=== PATIENT | female | born 1950 | race Caucasian/White ===

== ENCOUNTER → 2020-10-17 15:11 | Outpatient (BNVA) | payer MEDICARE, SELFPAY | PROVIDERS: Visit Provider Internal Medicine Cardiovascular Disease | DX: I48.0 Paroxysmal atrial fibrillation (principal); E78.5 Hyperlipidemia, unspecified | CPT/HCPCS: 93005; 99212 ==

== ENCOUNTER 2020-12-28 08:40 | Outpatient (REF) | payer MEDICARE, SELFPAY ==
[2020-12-28 09:14] LABS: Hematocrit 44.2 % (37-47); Hemoglobin 14.5 g/dl (12.0-16.0); Mean Corpuscular HGB Conc 32.8 g/dl (31.0-35.0); Mean Corpuscular Hemoglobin 30.1 pg (27.0-33.0); Mean Corpuscular Volume 91.9 fL (80-98); Mean Platelet Volume 8.8 fL (9.4-12.3); Platelet Count 351 X10*3/uL (160-400); Red Blood Count 4.81 X10*6/uL (4.20-5.50); Red Cell Distribution Width 12.6 % (11.0-16.0); White Blood Count 6.5 X10*3/uL (4.8-10.8)
[2020-12-28 09:35] LABS: Anion Gap 12 (12-20); Blood Urea Nitrogen 11 mg/dL (9-16); Calcium 9.4 mg/dL (8.4-10.2); Carbon Dioxide 26 mmol/L (22-29); Chloride 105 mmol/L (96-108); Cholesterol 257 mg/dL; Estimated Glomerular Filt Rate > 60; Glucose Random 101 mg/dL (60-115); HDL Cholesterol 60 mg/dL; LDL Cholesterol Calculated 167 mg/dl; Potassium 4.2 mmol/L (3.3-5.1); Sodium 139 mmol/L (135-145); Triglycerides 153 mg/dL
[2020-12-28 10:00] LABS: TSH reflex Free T4 0.06 uIU/mL (0.32-4.0)
== END 2020-12-28 08:41 | disposition home or self-care (01) ==
LOC: HO.LAB 08:40
PROVIDERS: Visit Provider Internal Medicine Cardiovascular Disease
DX: I48.0 Paroxysmal atrial fibrillation (principal); I25.10 Atherosclerotic heart disease of native coronary artery without angina pectoris
CPT/HCPCS: 36415; 80048; 80061; 84439; 84443; 85027

== ENCOUNTER → 2022-02-23 14:45 | Outpatient (BNVA) | payer MEDICARE, SELFPAY | PROVIDERS: Visit Provider Internal Medicine Cardiovascular Disease | DX: I48.0 Paroxysmal atrial fibrillation (principal); E78.5 Hyperlipidemia, unspecified; Z79.899 Other long term (current) drug therapy | CPT/HCPCS: 93005; 99212 ==

== ENCOUNTER 2023-04-22 14:21 | Outpatient (AMB) | payer MEDICARE, SELFPAY ==
--- NOTE | 2023-04-22 14:26 | A.OFFVIS_ITS ---
Intake Vital Signs 04/22/23 14:27 Height 5 ft 2 in Weight 147 lb 11.355 oz BMI 27.0 BP 120/80 Blood Pressure Location Lt brachial Position Sitting Pulse 68 Intake Visit Reasons: 1 year fu Intake Note: 1 year follow-up with ekg feeling good Critical Care Registered Nurse Required: No Allergies niacin Allergy (Unknown, Unverified 08/01/19 00:00) penicillin G Allergy (Unknown, Unverified 08/01/19 00:00) Medication List - Last Reconciled 04/22/23 by Alan King MD flecainide 50 mg PO Q12H levothyroxine (Synthroid) 88 mcg PO .everyother day levothyroxine (Synthroid) 100 mcg PO .everyother day metoprolol succinate ER 12.5 mg (1/2 x 25 mg) PO DAILY 90 days HPI HPI Comments History of Present Illness Details Lisa comes for follow-up. She had some palpitations when she had COVID but otherwise she has not had any episodes of atrial fibrillation. She takes all her medications. She denies any lightheadedness, syncope. No exertional chest pain or shortness of breath. [facility] Medical History Hyperlipidemia Paroxysmal atrial fibrillation Family History Father CVD (cardiovascular disease) Review of Systems Const Denies chills, Denies fatigue, Denies fever(s), Denies frequent falls, Denies weakness, Denies weight gain and Denies weight loss ENT Denies dizziness Card Denies chest pain, Denies leg edema, Denies lightheadedness, Denies palpitations , Denies dyspnea, Denies dyspnea on exertion, Denies orthopnea and Denies other (loss of consciousness) Resp Denies cough, Denies dyspnea and Denies dyspnea on exertion GI Denies hematochezia and Denies change in stool character Musc Denies abnormal gait, Denies muscle weakness, Denies numbness, Denies radiating pain into limb and Denies tingling Neuro Denies abnormal gait, Denies dizziness, Denies frequent falls, Denies numbness, Denies tingling and Denies weakness Endo Denies fatigue and Denies palpitations Physical Exam Vital Signs: Last Vital Signs Pulse 68 11/16/23 14:27 BP 120/80 04/22/23 14:27 BMI result Body Mass Index 27.0 Const General: cooperative, comfortable, no acute distress, alert, awake and well groomed Nutritional Appearance: average body habitus Limitations: no limitations Neck Neck: Yes trachea midline, Yes supple and Yes no JVD Resp Effort & Inspection: normal respiratory effort Cardio Jugular venous distension: no JVD Palpation: normal PMI Rate: regular rate Rhythm: regular rhythm Heart sounds: S1 normal heart sound present and S2 normal heart sound present GI Auscultation: normal bowel sounds Skin General skin exam: no rashes or lesions noted Neuro General: no focal motor deficits Extrem General: Yes no clubbing, cyanosis or edema Psych Appearance: grossly normal Office Procedures EKG Details: EKG shows normal sinus rhythm with poor R-wave progression most likely due to lead placement with low-voltage QRS in the precordial leads with [place] QT interval [id number], Complete Assessment & Plan Assessment & Plan (1) Paroxysmal atrial fibrillation: Code(s): I48.0 - Paroxysmal atrial fibrillation Plan: Highly symptomatic paroxysmal atrial fibrillation which has remained control with antiarrhythmic drug therapy with flecainide. Has done very well with rhythm control approach will continue pursue rhythm control approach. Continue flecainide therapy and with concomitant metoprolol therapy which is required to reduce risk of rapidly conducted atrial flutter. Also discussed about oral anticoagulation therapy. She does not want to start oral anticoagulant therapy at this point time. She requires EKG every 6 months. Will follow up in the clinic for EKG in 6 months and in 1 year with me. Thank you for allowing me to partake in the care Medications: Refilled flecainide 50 mg PO Q12H 180 tabs 1RF Coding Level of Care Code Est Pt Level 3 (73776) Diagnoses Paroxysmal atrial fibrillation I48.0 CPT Codes EKG - CPT: 93864-[id number], Complete ([id number])
[2023-04-22 14:27] VITALS: BP 120/80; PULSE 68; BMI 27.0
== END 2023-04-22 14:55 | disposition home or self-care (01) ==
PROVIDERS: Visit Provider Internal Medicine Cardiovascular Disease
DX: I48.0 Paroxysmal atrial fibrillation (principal)
CPT/HCPCS: 93010; 99213

== ENCOUNTER → 2023-04-22 14:21 | Outpatient (BNVA) | payer MEDICARE, SELFPAY | PROVIDERS: Visit Provider Internal Medicine Cardiovascular Disease | DX: I48.0 Paroxysmal atrial fibrillation (principal) | CPT/HCPCS: 93005; 99212 ==

== ENCOUNTER → 2023-10-13 09:53 | Outpatient (BNVA) | payer MEDICARE, SELFPAY | PROVIDERS: Visit Provider Internal Medicine Cardiovascular Disease ==

== ENCOUNTER 2024-04-19 10:18 | Outpatient (AMB) | payer MEDICARE, SELFPAY ==
--- NOTE | 2024-04-19 10:24 | MHC.OFFVIS ---
Vital Signs 04/19/24 10:25 Height 5 ft 2 in Weight 147 lb 11.355 oz BMI 27.0 BP 126/62 Blood Pressure Location Lt brachial Position Sitting Pulse 61 Pulse Source Monitor Intake Visit Reasons: 1 year fu Allergies niacin Allergy (Unknown, Unverified 08/01/19 00:00) penicillin G Allergy (Unknown, Unverified 08/01/19 00:00) Medication List - Last Reconciled 04/19/24 by Alan King MD flecainide 50 mg PO Q12H levothyroxine (Synthroid) 88 mcg PO .everyother day levothyroxine (Synthroid) 100 mcg PO .everyother day metoprolol succinate ER 12.5 mg (1/2 x 25 mg) PO DAILY HPI Comments Details: Lisa comes for follow-up. She has been doing very well from cardiac perspective. She has had no episodes of atrial fibrillation. She is currently retired and said enjoying lifestyle. Maintains exercise level on a regular basis. Denies any exertional chest pain or shortness of breath. No prolonged palpitation irregular heartbeat. No skipped heartbeats. Tolerating medications well. Denies heart failure symptoms. [facility] Medical History Hyperlipidemia Paroxysmal atrial fibrillation Family History Father CVD (cardiovascular disease) Review of Systems Const Denies weakness ENT Denies dizziness Card Denies chest pain, Denies chest pain with activity, Denies syncope, Denies rapid heart rate, Denies pedal edema, Denies edema, Denies leg edema, Denies lightheadedness, Denies palpitations, Denies dyspnea, Denies dyspnea on exertion and Denies orthopnea Resp Denies cough, Denies dyspnea and Denies dyspnea on exertion GI Denies hematochezia and Denies change in stool character Musc Denies abnormal gait, Denies muscle cramps, Denies muscle weakness, Denies numbness, Denies radiating pain into limb and Denies tingling Neuro Denies abnormal gait, Denies dizziness, Denies syncope, Denies numbness, Denies tingling and Denies weakness Endo Denies palpitations Physical Exam Vital Signs: Last Vital Signs Pulse 61 04/19/24 10:25 BP 126/62 04/19/24 10:25 BMI result Body Mass Index 27.0 Const General: cooperative, comfortable, no acute distress, alert, awake and well groomed Nutritional Appearance: average body habitus Limitations: no limitations Neck Neck: Yes trachea midline, Yes supple and Yes no JVD Resp Effort & Inspection: normal respiratory effort Cardio Jugular venous distension: no JVD Palpation: normal PMI Rate: regular rate Rhythm: regular rhythm Heart sounds: S1 normal heart sound present and S2 normal heart sound present GI Auscultation: normal bowel sounds Skin General skin exam: no rashes or lesions noted Neuro General: no focal motor deficits Extrem General: Yes no clubbing, cyanosis or edema Psych Appearance: grossly normal Office Procedures EKG Details: EKG shows normal sinus rhythm with poor R-wave progression most likely lead placement [id number], Complete Assessment & Plan Assessment & Plan (1) Paroxysmal atrial fibrillation: Code(s): I48.0 - Paroxysmal atrial fibrillation Category: Medical Plan: Paroxysmal atrial fibrillation which has remained suppressed on current antiarrhythmic drug therapy with flecainide. She is tolerating that well. Continue the same. Continue concomitant low-dose metoprolol therapy to reduce AV conduction. Recommend to start on oral anticoagulation therapy although she wants to continue to defer it. Continue to avoid stimulants. Stress mitigation strategies were discussed. Advised to call me with any recurrent symptoms. Follow-up echocardiogram in 1 year's time. Will need EKGs every 6 months. (2) Hyperlipidemia: Code(s): E78.5 - Hyperlipidemia, unspecified Category: Medical Plan: Significant hyperlipidemia although currently not on any treatment. LDL last checked in 2020. Recommended treatment although she currently wants to defer it. Continue aggressive lifestyle modification. Follow up in the clinic in 6 months for EKG only and with 1 year with me with EKG. Coding Level of Care Code Est Pt Level 4 (29185) Complex EM visit Add On G2211 Diagnoses Paroxysmal atrial fibrillation I48.0 Hyperlipidemia E78.5 CPT Codes EKG - CPT: 08180-[id number], Complete ([id number])
[2024-04-19 10:25] VITALS: BP 126/62; PULSE 61; BMI 27.0
== END 2024-04-19 10:47 | disposition home or self-care (01) ==
PROVIDERS: Visit Provider Internal Medicine Cardiovascular Disease
DX: I48.0 Paroxysmal atrial fibrillation (principal); E78.5 Hyperlipidemia, unspecified
CPT/HCPCS: 93010; 99214; G2211

== ENCOUNTER → 2024-04-19 10:18 | Outpatient (BNVA) | payer MEDICARE, SELFPAY | PROVIDERS: Visit Provider Internal Medicine Cardiovascular Disease | DX: I48.0 Paroxysmal atrial fibrillation (principal); E78.5 Hyperlipidemia, unspecified | CPT/HCPCS: 93005; 99212 ==

== ENCOUNTER → 2024-10-18 09:59 | Outpatient (BNVA) | payer MEDICARE, SELFPAY | PROVIDERS: Visit Provider Internal Medicine Cardiovascular Disease | DX: Z13.89 Encounter for screening for other disorder (principal) ==